=== PATIENT | male | born 2005 | race Caucasian/White ===

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

== ENCOUNTER → 2023-08-16 02:03 | Outpatient (CLI) | payer MEDICAID, SELFPAY ==
--- NOTE | 2023-08-16 06:30 | DI.US_ITS ---
Exam(s) US SOFT TISS ABD WALL/LOW BACK EXAM: US SOFT TISS ABD WALL/LOW BACK CLINICAL HISTORY: Protrusion-left lower thoracic region,SUBCUTANEOUS MASS OF BACK,R22.2. TECHNIQUE: Ultrasound was performed using standard protocol. COMPARISON: No exams were available for comparison FINDINGS: Submitted images reveal no evidence solid or cystic mass in the clinical region of concern posterior left thoracic region. IMPRESSION: No obvious ultrasound findings in the region of concern. If clinically indicated further study with CT or MRI can be performed. DATA REPOSITORY:
== END ==
PROVIDERS: Visit Provider Pediatrics
DX: R22.2 Localized swelling, mass and lump, trunk (principal)
CPT/HCPCS: 76705

== ENCOUNTER 2023-09-20 02:41 | Outpatient (CLI) | payer MEDICAID, SELFPAY ==
[2023-09-20 19:23] LABS: FREE T4 0.83 ng/dL (0.78-1.34); TSH 3.36 uIU/Ml (0.52-4.13)
== END 2023-09-20 02:42 | disposition home or self-care (01) ==
LOC: LBO 02:41
PROVIDERS: PCP Pediatrics; Visit Provider Pediatrics
DX: E03.9 Hypothyroidism, unspecified (principal); R79.89 Other specified abnormal findings of blood chemistry
CPT/HCPCS: 36415; 82306; 84439; 84443

== ENCOUNTER 2025-01-14 11:13 | Outpatient (CLI) | payer MEDICAID, SELFPAY ==
[2025-01-14 11:22] LABS: Abs Immature Grans 0.01 10^3/uL (0.0-0.06); HCT 43.6 % (40.0-50.0); HGB 15.4 g/dL (13.5-17.5); Immature Grans % 0.2 %; MCH 32.1 pg (27.0-33.0); MCHC 35.3 % (32.0-36.0); MCV 91 fL (80-95); MPV 8.5 fL (8.0-11.0); Platelet Count 275 10^3/uL (130-400); RBC 4.80 10^6/uL (4.36-5.78); RDW 12.7 % (11.8-14.1); RDW-SD 42.1 fL; WBC 5.58 10^3/uL (4.4-10.8)
[2025-01-14 12:52] LABS: TSH 3.84 uIU/mL (0.36-3.74)
== END 2025-01-14 11:14 | disposition home or self-care (01) ==
LOC: LBO 11:13
PROVIDERS: PCP Pediatrics; Visit Provider Pediatrics
DX: E03.9 Hypothyroidism, unspecified (principal)
CPT/HCPCS: 36415; 82784; 83516; 84439; 84443; 85025

== ENCOUNTER 2025-03-22 19:50 | Day surgery (SDC) | payer MEDICAID, SELFPAY | END 2025-03-22 19:51 | disposition home or self-care (01) | LOC: SUR 19:50 | PROVIDERS: PCP Pediatrics; Visit Provider Otolaryngology | DX: Z53.29 Procedure and treatment not carried out because of patient's decision for other reasons (principal) ==

== ENCOUNTER 2025-05-17 07:04 | Day surgery (SDC) | payer MEDICAID, SELFPAY ==
--- NOTE | 2025-05-16 18:41 | W.ANESPRE ---
General Info Date of Service Date Performed: 05/17/25 Height: 5 ft 1.02 in Weight: 58.967 kg Body Mass Index (BMI): 24.5 Surgical Procedure: Operation Date: 05/17/25 08:40 Proposed Procedure Side Surgeon p Placement of Pressure Equalization Tube Left Viktor Ching MD Meds Allergies and Home Medications Allergies Allergy/AdvReac Type Severity Reaction Status Date / Time gluten Allergy Unknown unknown Verified 05/17/25 07:28 No Known Drug Allergies Allergy . Verified 05/14/25 12:37 Home Medication Medication Instructions Recorded triamcinolone acetonide 0.1 % 1 applic topical BID #80 grams 06/23/18 topical ointment cholecalciferol (vitamin D3) 50 50 mcg PO DAILY 09/06/21 mcg (2,000 unit) capsule multivitamin 1 tab PO DAILY 09/06/21 ketoconazole 2 % shampoo 1 applic topical ONCE #120 mL 12/24/24 levothyroxine 88 mcg tablet 88 mcg PO DAILY #90 tabs 05/15/25 Current Visit Medications: Current Medications Generic Name Dose Route Start Last Admin Trade Name Freq PRN Reason Stop Dose Admin Ringer's Solution 1,000 mls @ 80 mls/hr 05/17/25 06:00 IV 05/17/25 23:59 INFUSION ZENIA IV Miscellaneous Supplies 1 each 05/17/25 06:00 Iv Access IV 05/17/25 23:59 DIRECTED ZENIA Sodium Chloride 0 ml 05/17/25 06:00 Normal Saline Flush 10 Ml Syr IV 05/17/25 23:59 PRN PRN Sodium Chloride 0 ml 05/17/25 06:00 Normal Saline 10 Ml Vial IJ 05/17/25 23:59 DIRECTED PRN Sterile Water 0 ml 05/17/25 06:00 Water,Injection,Sterile 10 Ml Vial IJ 05/17/25 23:59 DIRECTED PRN PFSH Active Problems Active Problems: Problem Status Onset Code Chronic serous otitis media, left ear Acute H65.22 Subcutaneous mass of back Acute R22.2 Retained myringotomy tube in right ear Acute Z96.22 Dysfunction of left eustachian tube Acute H69.92 Acute suppur left otitis media w/o spontan rupture tympanic membrane Acute H66.002 Perforation of left tympanic membrane Acute H72.92 Celiac disease Acute 08/18/14 K90.0 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 Acute F81.9 Weight loss Acute R63.4 Trisomy 21 Acute Eczema Chronic L30.9 Hypothyroidism Chronic 12/28/11 E03.9 Medical History Medical History SARS-CoV-2 positive 08/03/21 per phone call from mom, via rapid test Surgical History Surgical History TE fistula repair Tonsillectomy and adenoidectomy Myringotomy w/ PE (pressure equalizing) tubes Laryngeal cleft repair Tobacco Smoking/Tobacco Use Status: Never Passive smoking exposure: No Alcohol Alcohol Intake: never Substance Use Substance use: Never Substance use type: does not use Vital Signs and Lab Results Vital Signs Most Recent Vital Signs in EMR: Temp Resp BP 36.6 C 16 146/97 H 05/17/25 07:28 05/17/25 07:28 05/17/25 07:28 Anesthesia Assessment and Plan Anesthesia History Personal History: No History of Anesthesia Complications Family History: No Family History of Anesthesia Complications Exercise Tolerance Exercise Tolerance: Metabolic Equivalents>4 Pertinent Negatives Pertinent Negatives: No Symptoms of GERD Cardiac & Pulmonary Exam Cardiac Exam: Normal S1/S2 Heart Sounds Pulmonary Exam: Clear Bilateral Breath Sounds Implantable Cardiac Device Does patient have a Pacemaker or an ICD?: No Airway Exam Known Difficult Airway: No Mallampati Class: 4 Mouth Opening: Normal (> 3cm) Thyromental Distance: Greater than 3 cm Neck Range of Motion: Full ROM Neck Circumference: Normal Teeth Condition: Normal Dentition ASA Classification ASA Score: ASA 2 Emergency Case?: No NPO Status NPO Status: NPO Clears >2 hours, Solids >8 hours Anesthesia Plan Resuscitation Status: Full Code Anesthesia Technique: General Anesthesia Airway Planned: Natural Airway Monitors Used: Standard Monitors Preoperative Comments:: 19 y/o M for Placement of L pressure equalization tube Medical hx: Trisomy 21 Chronic otitis media, dysfunction of L eustachian tube learning difficulty with cognitive limitation Hypothyroidism Baseline vitals: 120-130s/80-90s Resuscitation Status: Full Code Anesthesia Technique: General Anesthesia Airway Planned: Natural Airway Monitors Used: Standard Monitors
[2025-05-17 07:28] VITALS: BP 146/97; RESP 16; TEMP 36.6
--- NOTE | 2025-05-17 08:22 | PDOC.DSDIS_ITS ---
Date of service: 05/17/25 Discharge Plan Disposition Patient Disposition: Home Condition: Good Discharge Details Reason For Visit: Left PE tube Attending Provider: Viktor Ching Primary Care Provider: Jc Contreras Home Meds and New Rx's Prescriptions: No Action triamcinolone acetonide 0.1 % ointment 1 applic TP BID Qty: 80 1RF Rx Instructions: apply to hands twice a day as needed for dry , irritated skin multivitamin Tablet 1 tab PO DAILY cholecalciferol (vitamin D3) 50 mcg (2,000 unit) capsule 50 mcg PO DAILY ketoconazole 2 % shampoo 1 applic topical ONCE Qty: 120 2RF Rx Instructions: Apply 5 to 10 mL to wet scalp, lather, leave on 3 to 5 minutes, and rinse; apply twice weekly for 2 to 4 weeks levothyroxine 88 mcg tablet 88 mcg PO DAILY Qty: 90 0RF Discharge Instructions Additional Instructions: Keep water out of ear for 1 week Stand Alone Forms: ENT- Tube Instr. [employer], Portal Information Referrals: Viktor Ching MD [ [facility] STAFF PHYSICIAN, ENT Surgical] Referral Note: 1 month, please call for appointment if appointment is not already made prior to patient's departure Discharge Orders Discharge Orders: Discharge Order (Routine); Ordered 05/17/25 Ordered By: Viktor Ching
--- NOTE | 2025-05-17 08:24 | W.PM.OP ---
Operative Note Operative Note PRE-OP DIAGNOSIS: Chronic serous otitis media, left POST-OP DIAGNOSIS: same PROCEDURE: Exam under anesthesia with left myringotomy with left PE tube placement SURGEON: Viktor Ching ANESTHESIA TYPE: General:No Airway Refer to Anesthesia Record ESTIMATED BLOOD LOSS: 0 PATHOLOGY: none sent COMPLICATIONS: None Patient was transported to: PACU Patient's condition: stable Implants: Left Medipore Lyndsay PE tube Indications: Patient with left chronic serous otitis media. Options were explained to the mother regarding further management. She and he decided to undergo the above procedure. Consent was filled out and signed prior to procedure. All questions were answered. H&P was reviewed. There have been no changes. Findings: Left serous otitis media, shallow middle ear space Procedure Description: After obtaining an adequate level of general mask anesthesia, the patient was positioned in a supine position and prepped and draped in appropriate fashion. The left ear was examined using appropriate sized ear speculum and the operating microscope with a 250 mm lens. The external canal was debrided of cerumen and the TM examined. There was no evidence of cholesteatoma and the middle ear space was very shallow. As such, the anterior-inferior quadrant was identified and a radial myringotomy was made. A Lyndsay PE tube was carefully introduced into the myringotomy and check for position, placement, hemostasis, and patency. After ensuring that all of these criteria were met the patient was awakened and transported the recovery room in stable condition. I was present throughout the entire case. Right PE tube was examined and found to still be intact and in good position. Date of Procedure: 05/17/25
[2025-05-17 08:28] VITALS: BMI 24.5
[2025-05-17] MEDS: Lactated Ringers 1,000 ML 80 ML IV (08:47)
[2025-05-17] MEDS: Bacitracin 1 PACKET (09:09)
[2025-05-17 09:20] VITALS: BP 130/67; PULSE 84; RESP 16; TEMP 36.6; O2SAT 94
--- NOTE | 2025-05-17 09:29 | W.ANESPOSTOP ---
Postoperative Evaluation Date, Time and Location Date Performed: 05/17/25 Time Performed: 09:33 Patient Location: Day Surgery Unit Vital Signs Most Recent Imported Vital Signs: Most Recent Vital Signs Temp Resp BP 36.6 C 16 146/97 H 05/17/25 07:28 05/17/25 07:28 05/17/25 07:28 Assessment Mental Status: Awake (Alert & Oriented to Patient Baseline) Airway and Respiratory Function: Patent airway with normal (patient baseline) respiratory exam Cardiovascular Function: Hemodynamically Stable Hydration Status: Adequately Hydrated Nausea & Vomiting: No Nausea or Vomiting Pain: Pt. Denies Any Pain Peripheral Nerve Block: Patient did not receive a nerve block
[2025-05-17 09:45] VITALS: BP 127/93; PULSE 77; RESP 16; TEMP 36.8; O2SAT 97
== END 2025-05-17 09:50 | disposition home or self-care (01) ==
PROVIDERS: PCP Pediatrics; Visit Provider Otolaryngology
PROC: (CPT 69420; principal; 2025-05-17 08:30)
DX: H65.22 Chronic serous otitis media, left ear (principal)
CPT/HCPCS: 69436; J2003; J2704